=== PATIENT | female | born 1990 | race African-American/Black ===

== ENCOUNTER 2023-11-12 09:42 | Outpatient (AMB) | payer OTHER, SELFPAY ==
[2023-11-12 09:44] VITALS: BP 124/96; PULSE 78; O2SAT 99; BMI 24.3
--- NOTE | 2023-11-12 09:44 | HO.NEPHOV ---
Vital Signs 11/12/23 09:44 Height 5 ft 3 in Weight 137 lb BMI 24.3 BP 124/96 H Blood Pressure Location Lt brachial Position Sitting Pulse 78 Pulse Source Pulse Oximeter Pulse Oximetry (%) 99 Oxygen Delivery Method Room Air Intake Visit Reasons: CKD/ Unable to leave message Psychiatric Secretary Required: No Accompanied by: Self / Same As Patient Allergies trimethoprim [From Bactrim] Allergy (Unknown, Verified 11/12/23 09:46) Unknown Medication List - Last Reconciled 11/12/23 by Conner Gupta MD lisinopril 5 mg PO DAILY norethindrone (contraceptive) 0.35 mg PO DAILY HPI Comments Details: Young woman with history of PCKD. She is here for annual follow-up. She is well known to me for the last several years No specific complaints today PFSH Family History Father Kidney disease Hypertension Social History Patient Tobacco Use Status: Never used Tobacco Review of Systems Const Denies fever(s) and Denies weight loss Card Denies chest pain Resp Denies cough and Denies hemoptysis GI Denies abdominal pain, Denies diarrhea and Denies nausea Musc Denies back pain Neuro Denies focal weakness Physical Exam Vital Signs: Last Vital Signs Pulse 78 11/12/23 09:44 BP 124/96 H 11/12/23 09:44 Pulse Ox 99 11/12/23 09:44 Oxygen Delivery Method Room Air 11/12/23 09:44 BMI result Body Mass Index 24.3 Const General: comfortable; No acute distress Orientation/consciousness: patient oriented x3 Eyes General: appearance normal, both eyes and all related structures Visual Floyd: normal visual floyd by confrontation Neck Neck: Yes supple and Yes no JVD Resp Effort & Inspection: normal respiratory effort and respiratory effort not decreased Auscultation: rhonchi Cardio Palpation: no palpable S3 and no palpable S4 Heart sounds: no rubs GI Inspection: Yes normal to inspection Palpation (GI): Soft to palpation Percussion: Yes normal to percussion Auscultation: normal bowel sounds General: Yes no CVA tenderness Back/Spine/Pelvis Back: no CVA tenderness Skin General skin exam: no petechiae and no purpura Neuro General: patient oriented x3 and no focal motor deficits Extrem General: No clubbing and No edema Results Reviewed Results Reviewed: Labs ordered Nephrology Results: No Data to Display Assessment & Plan Assessment & Plan (1) PCK (polycystic kidney disease): Code(s): Q61.3 - Polycystic kidney, unspecified Category: Medical Plan Young woman with polycystic kidney disease. Renal function has been stable. No UTIs. No urinary symptoms. Goal is to slow the portion disease Continue LIDYA inhibitors. Stay on low-sodium diet. She is not interested in taking tolvaptan Blood pressure is slightly elevated Encouraged her to keep monitoring at home. If blood pressure remains elevated I will increase lisinopril as needed. Orders: Orders Basic Metabolic Panel Today Q61.3 - Polycystic kidney, unspecified Total Protein Urine Random Today Q61.3 - Polycystic kidney, unspecified UA and rflx microscopic Today Q61.3 - Polycystic kidney, unspecified Creatinine Urine Today Q61.3 - Polycystic kidney, unspecified Complete Blood Count Auto Diff Today Q61.3 - Polycystic kidney, unspecified Coding Level of Care Code Est Pt Level 4 (02964) Diagnoses PCK (polycystic kidney disease) Q61.3
== END 2023-11-12 10:11 | disposition home or self-care (01) ==
PROVIDERS: Visit Provider Internal Medicine Hypertension Specialist
DX: Q61.3 Polycystic kidney, unspecified (principal)
CPT/HCPCS: 99214

== ENCOUNTER → 2023-11-12 09:42 | Outpatient (BNVA) | payer OTHER, SELFPAY | PROVIDERS: Visit Provider Internal Medicine Hypertension Specialist | DX: N18.9 Chronic kidney disease, unspecified (principal); Q61.3 Polycystic kidney, unspecified | CPT/HCPCS: 99212 ==

== ENCOUNTER 2023-11-12 10:12 | Outpatient (REF) | payer OTHER, SELFPAY ==
[2023-11-12 18:35] LABS: MANUAL DIFF FLAG NO
[2023-11-12 18:38] LABS: Basophils Percent Auto 0.8 % (0-2); Eosinophils Absolute Auto 0.1 X10*3/uL (0.0-0.4); Eosinophils Percent Auto 1.2 % (0-4); Hematocrit 38.7 % (37.0-47.0); Hemoglobin 12.7 g/dl (12.0-16.0); Imm Gran Abs Auto 0.01 X10*3/uL (0.00-0.03); Imm Gran Pct Auto 0.2 % (0.0-0.4); Lymphocytes Absolute Auto 1.4 X10*3/uL (1.2-4.9); Lymphocytes Percent Auto 27.8 % (20-40); Mean Corpuscular HGB Conc 32.8 g/dl (31.0-35.0); Mean Corpuscular Hemoglobin 29.1 pg (27.0-33.0); Mean Corpuscular Volume 88.6 fL (80.0-98.0); Monocytes Absolute Auto 0.2 X10*3/uL (0.1-1.2); Monocytes Percent Auto 4.1 % (2-11); Neutrophils Absolute Auto 3.4 x10*3/uL (2.0-8.3); Neutrophils Percent Auto 65.9 % (45-73); Platelet Count 194 X10*3/uL (160-400); Red Blood Count 4.37 X10*6/uL (4.20-5.50); Red Cell Distribution Width 12.7 % (11.0-16.0); White Blood Count 5.2 X10*3/uL (4.8-10.8)
[2023-11-12 18:56] LABS: Anion Gap 12 (12-20); Blood Urea Nitrogen 12 mg/dL (9-16); Calcium 9.1 mg/dL (8.4-10.2); Carbon Dioxide 23 mmol/L (22-29); Chloride 108 mmol/L (96-108); Estimated Glomerular Filt Rate > 60; Glucose Random 92 mg/dL (60-115); Potassium 4.1 mmol/L (3.3-5.1); Sodium 139 mmol/L (135-145)
== END 2023-11-12 10:13 | disposition home or self-care (01) ==
LOC: HO.HKASLDS 10:12
PROVIDERS: Visit Provider Internal Medicine Hypertension Specialist
DX: Q61.3 Polycystic kidney, unspecified (principal)
CPT/HCPCS: 36415; 80048; 85025

== ENCOUNTER 2023-11-18 11:06 | Outpatient (REF) | payer OTHER, SELFPAY ==
[2023-11-18 17:47] LABS: Appearance Urine Clear; Color Urine Yellow; Glucose Urine UA Negative (Negative); Leukocyte Esterase Urine Negative (Negative); Nitrite Urine Negative (Negative); Specific Gravity - Urine 1.015 (1.005-1.025); Urine Blood Negative (Negative); Urine Ketones Negative (Negative); Urine Protein Negative (Neg-Trace)
[2023-11-18 18:26] LABS: Total Protein Urine Random 11 mg/dL (<12)
== END 2023-11-18 11:07 | disposition home or self-care (01) ==
LOC: HO.HKASLDS 11:06
PROVIDERS: Visit Provider Internal Medicine Hypertension Specialist
DX: Q61.3 Polycystic kidney, unspecified (principal)
CPT/HCPCS: 81003; 82570; 84156

== ENCOUNTER 2024-11-17 08:39 | Outpatient (AMB) | payer OTHER, SELFPAY ==
[2024-11-17 08:42] VITALS: BP 148/104; PULSE 103; O2SAT 99; BMI 23.4
--- NOTE | 2024-11-17 08:42 | HO.NEPHOV ---
Vital Signs 11/17/24 08:42 Height 5 ft 3 in Weight 132 lb BMI 23.4 BP 148/104 H Blood Pressure Location Lt brachial Position Sitting Pulse 103 H Pulse Source Pulse Oximeter Pulse Oximetry (%) 99 Oxygen Delivery Method Room Air Intake Visit Reasons: R/s from 11/10/24 Conf Auto Accessories Installer Required: No Accompanied by: Self / Same As Patient Allergies trimethoprim (From Bactrim) Allergy (Unknown, Verified 11/17/24 08:45) Unknown Medication List - Last Reconciled 11/17/24 by Conner Gupta MD lisinopril 5 mg PO DAILY norethindrone (contraceptive) 0.35 mg PO DAILY HPI Comments Details: Young woman with history of PCKD. She is here for annual follow-up. She is well known to me for the last several years No specific complaints today Ran out of meds Home BP has been excellent PFSH Family History Father Kidney disease Hypertension Social History Patient Tobacco Use Status: Never used Tobacco Physical Exam Vital Signs: Last Vital Signs Pulse 103 H 11/17/24 08:42 BP 148/104 H 11/17/24 08:42 Pulse Ox 99 11/17/24 08:42 Oxygen Delivery Method Room Air 11/17/24 08:42 BMI result Body Mass Index 23.4 Const General: comfortable; No acute distress Orientation/consciousness: patient oriented x3 Eyes General: appearance normal, both eyes and all related structures Visual Floyd: normal visual floyd by confrontation Neck Neck: Yes supple and Yes no JVD Resp Effort & Inspection: normal respiratory effort and respiratory effort not decreased Auscultation: rhonchi Cardio Palpation: no palpable S3 and no palpable S4 Heart sounds: no rubs GI Inspection: Yes normal to inspection Palpation (GI): Soft to palpation Percussion: Yes normal to percussion Auscultation: normal bowel sounds General: Yes no CVA tenderness Back/Spine/Pelvis Back: no CVA tenderness Skin General skin exam: no petechiae and no purpura Neuro General: patient oriented x3 and no focal motor deficits Extrem General: No clubbing and No edema Results Reviewed Nephrology Results: Hgb, (12.0-16.0) 12.7 g/dl 24 WBC, (4.8-10.8) 5.2 X10*3/uL 24 Plt Count, (160-400) 194 X10*3/uL 24 Sodium, (135-145) 139 mmol/L 24 Potassium, (3.3-5.1) 4.1 mmol/L 24 Chloride, (96-108) 108 mmol/L 24 Carbon Dioxide, (22-29) 23 mmol/L 24 BUN, (9-16) 12 mg/dL 24 Creatinine, (0.5-1.4) 0.88 mg/dL 24 Calcium, (8.4-10.2) 9.1 mg/dL 24 Urine Protein, (Neg-Trace) Negative mg/dL 11/18/23 Urine Creatinine 148.20 mg/dL 11/18/23 Assessment & Plan Assessment & Plan (1) PCK (polycystic kidney disease): Code(s): Q61.3 - Polycystic kidney, unspecified Category: Medical Plan Young woman with polycystic kidney disease. Renal function has been stable. No UTIs. No urinary symptoms. Goal is to slow the portion disease Continue LIDYA inhibitors. Stay on low-sodium diet. She is not interested in taking tolvaptan Blood pressure is slightly elevated REsume Lisinopril 5 mg Encouraged her to keep monitoring at home. If blood pressure remains elevated I will increase lisinopril as needed. Orders: Orders Creatinine Urine Today Q61.3 - Polycystic kidney, unspecified UA and rflx microscopic Today Q61.3 - Polycystic kidney, unspecified Basic Metabolic Panel Today Q61.3 - Polycystic kidney, unspecified Total Protein Urine Random Today Q61.3 - Polycystic kidney, unspecified Medications: New lisinopril 5 mg PO DAILY 90 tabs 3RF Coding Level of Care Code Est Pt Level 4 (73397) Diagnoses PCK (polycystic kidney disease) Q61.3
--- OUTSIDE RECORDS SUMMARY | 2024-11-17 08:53 | XMS_ITS | Clinical Summary ---
Author Organization [facility] Address [address] [place] [address] Phone Care Team Providers Care Vehicle Damage Appraiser Name Role Phone Massiel Hair MD Primary Care Provider Nadia lable Allergies Active Allergy Reactions Criticality Noted Date Comments Sulfamethoxazole-Trimethoprim Other (see comments) 08/21/2020 Medications lisinopril 5 MG tablet TAKE 1 TABLET BY MOUTH 1 TIME EACH DAY. 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 H/O: kidney disease 07/10/2016 Immunizations Immunization Administration Dates Next Due DTP 03/17/1996, 3,02/22/1992,01/05/1992,0 1991 DTaP / HiB / IPV 11/20/1992,02/22/1992, 2,1991 Hep B, Adolescent or Pediatric 05/25/1992,1991,1991 MMR 09/09/1996,11/20/1992 Meningococcal MCV4P 06/12/2007 OPV 03/17/1996,02/22/1993,01/05/1992 ,1991 Td 12/29/2003 Tdap 11/08/2016,08/24/2009 Varicella 04/29/2005,04/19/1992 Family History Medical History Relation Comments Hypertension Father Kidney disease Father FSGS Relation Status Comments Father Alive Mother Unknown Social History Tobacco Use Types Packs/Day Years Used Date Smoking Tobacco: Never Smokeless Tobacco: Never Tobacco Cessation:Counseling Given: Not Answered Alcohol Use Standard Drinks/Week Comments Yes 0 (1 standard drink = 0.6 oz pur e alcohol) Comments Unknown Sex and Gender Information Value Date Recorded Sex Assigned at Not on file Legal Sex Female 4:44 PM EST Gender Identity Not on file Sexual Orientation Not on file Last Filed Vital Signs Vital Sign Reading Time Taken Comments Blood Pressure 120/60 05/19/2023 2:23 PM EST Pulse 83 05/19/2023 2:23 PM EST Temperature - - Respiratory Rate - - Oxygen Saturation 100% 05/19/2023 2:23 PM EST Inhaled Oxygen Concentration - - Weight 59.7 kg (131 lb 9.6 oz) 05/19/2023 2:23 P M EST Height 160 cm (5' 3 ) 07/15/2018 12:00 PM EDT Body Mass Index 23.31 07/15/2018 12:00 PM EDT Plan of Treatment Health Maintenance Due Date Last Done Comments Pneumococcal Vaccine: Peds ( 0 to 5 Years) and At-Risk Patients (6 to 49 Years) (1 of 2 - PCV) 08/17/2010 Influenza Vaccine (#1) 2024 02/05/2021 Hepatitis B Vaccine Completed 05/25/1992, 1991, 1991 Insurance Medicaid [facility] Medicaid Care Teams Vehicle Damage Appraiser Relationship Specialty Start Date End Date Massiel Hair MD PCP - General 05/01/20
--- OUTSIDE RECORDS SUMMARY | 2024-11-17 08:53 | XMS_ITS ---
Author Name [facility] Organization Unknown Care Team Organization Name Specialty Phone Email Start Date End Da gudelia [facility] CRISTIANO RUSSELL [email or web address] 01/22/2023 4 [facility] Gisel Gómez Primary Care 02/26/202211/19 4
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
== END 2024-11-17 08:57 | disposition home or self-care (01) ==
PROVIDERS: Visit Provider Internal Medicine Hypertension Specialist
DX: Q61.3 Polycystic kidney, unspecified (principal)
CPT/HCPCS: 99214

== ENCOUNTER → 2024-11-17 08:39 | Outpatient (BNVA) | payer OTHER, SELFPAY | PROVIDERS: Visit Provider Internal Medicine Hypertension Specialist | DX: Q61.3 Polycystic kidney, unspecified (principal) | CPT/HCPCS: 99212 ==